=== PATIENT | female | born 1970 | race Caucasian/White ===

== ENCOUNTER 2019-08-23 12:34 | Outpatient (CLI) | payer OTHER, SELFPAY ==
--- NOTE | ~2019-08-23 | MM_ITS ---
EXAMINATION: MM screening [facility] BI w reji HISTORY: Screening mammogram TECHNIQUE: Craniocaudal and mediolateral oblique 3-D tomosynthesis images were obtained and synthetic 2-D images were generated. CAD analysis was submitted and interpreted. COMPARISON: 05/27/2018, 09/05/2016, 01/07/2013 BREAST PARENCHYMAL COMPOSITION: The breasts are almost entirely fatty. FINDINGS: RIGHT BREAST: There is no evidence of suspicious mass, calcification, or architectural distortion to suggest malignancy. There has been no significant interval change. LEFT BREAST: An asymmetry is present in the far posterior third of the slightly outer left breast on the craniocaudal view. IMPRESSION: 1. Left breast asymmetry on the craniocaudal view. 2. Additional mammographic views and possible breast ultrasound are recommended. BI-RADS Category 0: Incomplete: Needs additional imaging evaluation. Reviewed, dictated and finalized at location A. IMPRESSION: 1. Left breast asymmetry on the craniocaudal view. 2. Additional mammographic views and possible breast ultrasound are recommended . BI-RADS Category 0: Incomplete: Needs additional imaging evaluation.
--- NOTE | ~2019-08-23 | US_ITS ---
EXAMINATION: US pelvic complete w TV DATE: 08/23/2019 13:43 INDICATION: Menorrhagia, pelvic pain TECHNIQUE: Multiple transabdominal and endovaginal sonographic images of the pelvis were obtained. COMPARISON: None. FINDINGS: The uterus measures 9.9 x 6.7 cm. There is a 2.8 x 2.9 cm isoechoic area in the left uterin e body with the appearance of an intramural fibroid. The endometrial complex measures 10 mm. The righ t ovary measures 2.5 x 1.7 x 2.3 cm. The left ovary measures 2.7 x 2.4 x 2.6 cm. There is normal vas cular flow in the ovaries. There is no free fluid in the pelvis. IMPRESSION: 1. Uterine fibroid. Reviewed, dictated and finalized at location A. IMPRESSION: 1. Uterine fibroid.
== END 2019-08-23 12:35 ==
PROVIDERS: PCP Family Medicine; Visit Provider Obstetrics & Gynecology
DX: Z12.31 Encounter for screening mammogram for malignant neoplasm of breast (principal); N92.0 Excessive and frequent menstruation with regular cycle; R92.8 Other abnormal and inconclusive findings on diagnostic imaging of breast; D25.9 Leiomyoma of uterus, unspecified
CPT/HCPCS: 76830; 76856; 77063; 77067

== ENCOUNTER 2019-09-07 12:07 | Outpatient (CLI) | payer OTHER, SELFPAY ==
--- NOTE | ~2019-09-07 | MMUS_ITS ---
EXAMINATION: MM diagnostic mammo unilat LT, US breast LT limited HISTORY: Left breast mammographic asymmetry reported in the far posterior third of slightly outer lef t breast on 08/23/2019 screening mammogram TECHNIQUE: Additional 3-D tomosynthesis images of the left breast were performed and synthetic 2-D im ages were generated. CAD analysis was submitted and interpreted. High resolution upper outer quadrant and lower outer quadrant left breast ultrasound was performed. COMPARISON: 09/05/2016, 05/27/2018 bilateral digital screening mammogram examinations FINDINGS: MAMMOGRAPHIC FINDINGS: The asymmetric density in the posterior outer left breast on craniocaudal view is reproduced but appe ars benign. ULTRASOUND: There is no evidence of focal abnormal solid or cystic lesion in the upper outer or lower outer quadr ants of the left breast. IMPRESSION: 1. No mammographic evidence of malignancy 2. 6 month diagnostic left mammogram follow-up is recommended to confirm stability at asymmetric opac ity in posterior outer left breast on craniocaudal view BI-RADS category 3, probably benign findings. Reviewed, dictated and finalized at location A. IMPRESSION: 1. No mammographic evidence of malignancy 2. 6 month diagnostic left mammogram follow-up is recommended to confirm stabil ity at asymmetric opacity in posterior outer left breast on craniocaudal view BI-RADS category 3, probably benign findings.
== END 2019-09-07 12:08 | disposition home or self-care (01) ==
PROVIDERS: PCP Family Medicine; Visit Provider Obstetrics & Gynecology
DX: N63.20 Unspecified lump in the left breast, unspecified quadrant (principal)
CPT/HCPCS: 76642; 77065

== ENCOUNTER → 2020-09-04 08:58 | Outpatient (CLI) | payer OTHER, SELFPAY ==
[2020-09-04 19:04] LABS: SARS-CoV-2 RNA PCR Negative
== END ==
PROVIDERS: PCP Family Medicine; Visit Provider Physician Assistant Medical
DX: R68.89 Other general symptoms and signs (principal); Z20.822 Contact with and (suspected) exposure to COVID-19
CPT/HCPCS: C9803; U0003; U0005

== ENCOUNTER 2020-11-19 19:31 | Emergency (ER) | payer OTHER, SELFPAY ==
--- NOTE | ~2020-11-19 | XR_ITS ---
EXAMINATION: XR chest 1V portable EXAM DATE: 11/19/2020 20:11 INDICATION: Shortness of breath, cough for 4 days. TECHNIQUE: Portable AP frontal chest x-ray was obtained. Comparison is made to prior examination from 09/05/2017. FINDINGS: The lungs are clear. There are no pleural effusions. The cardiomediastinal silhouette is within normal limits. There is no pneumothorax suspected. The bones and soft tissues are unremarkab le. IMPRESSION: Normal chest x-ray exam. Reviewed, dictated and finalized at location G. IMPRESSION: Normal chest x-ray exam.
[2020-11-19 19:35] VITALS: BP 159/110; PULSE 87; RESP 18; TEMP 36.7; O2SAT 100
--- NOTE | 2020-11-19 19:52 | ED.GENADULT ---
HPI - General Adult General Chief complaint: Upper Respiratory Infection Stated complaint: hoarce, throat swelling Time Seen by Provider: 11/19/20 19:34 Source: patient and RN notes reviewed Mode of arrival: ambulatory Limitations: no limitations History of Present Illness HPI narrative: Patient is a 50-year-old female who presents with upper respiratory symptoms for the last couple of days congestion rhinorrhea hoarseness and cough productive of phlegm. Patient denies fever vomiting diarrhea. Patient has been taking Mucinex with minimal improvement. Patient denies tobacco abuse. Patient has not been vaccinated for Covid Related Data Allergies Allergy/AdvReac Type Severity Reaction Status Date / Time No Known Allergies Allergy Mild Verified 10/21/19 13:45 Review of Systems Review of Systems: All systems reviewed & are unremarkable except as noted in HPI and below PMFSH Family History Family History Grandparent Family history of malignant neoplasm of breast Other Diabetes mellitus Family history of alcoholism Family history of arthritis Family history of cardiovascular disease Family history of heart disease in male family member before age 55 Family history of malignant neoplasm Family history of mental disorder Hypertension Social History Social History Smoking status: Never smoker Alcohol intake: never Exam Narrative: Exam Narrative: GENERAL: Well-appearing, well-nourished, and in no acute distress. HEAD: Normocephalic, atraumatic. EYES: PERRLA and EOMI. ENT: Nares clear, no rhinorrhea or epistaxis. Mucous membranes moist. Oropharynx without tonsillar hypertrophy exudate or other lesions. NECK: Supple. No adenopathy or masses. CHEST: Clear to auscultation. No respiratory distress. No wheezes rales or rhonchi HEART: Regular rate and rhythm. No murmur heard. EXTREMITIES: Normal range of motion. No edema. SKIN: Warm, dry, no rash. NEURO: No focal deficits. Alert and oriented x3. PSYCH: Normal mood and affect. Course Course Emergency Course: Patient in the room no distress no pneumonia no hypoxemia discharged home with outpatient reevaluation Vital Signs Vital signs: Vital Signs Temperature 98.1 F 11/19/20 19:35 Pulse Rate 87 11/19/20 19:35 Respiratory Rate 18 11/19/20 19:35 Blood Pressure 159/110 H 11/19/20 19:35 Pulse Oximetry 100 11/19/20 19:35 Temperature 98.1 F 11/19/20 19:35 Pulse Rate 87 11/19/20 19:35 Respiratory Rate 18 11/19/20 19:35 Blood Pressure 159/110 H 11/19/20 19:35 Pulse Oximetry 100 11/19/20 19:35 Medical Decision Making MDM Narrative Medical decision making narrative: Patient will be discharged home pending Covid testing given reasons to return advised to purchase a home oximeter to encourage fluids self quarantine ABCs and vital signs intact and stable similar Vital Signs Vital Signs: Vital Signs Temperature 98.1 F 11/19/20 19:35 Pulse Rate 87 11/19/20 19:35 Respiratory Rate 18 11/19/20 19:35 Blood Pressure 159/110 H 11/19/20 19:35 Pulse Oximetry 100 11/19/20 19:35 Temperature 98.1 F 11/19/20 19:35 Pulse Rate 87 11/19/20 19:35 Respiratory Rate 18 11/19/20 19:35 Blood Pressure 159/110 H 11/19/20 19:35 Pulse Oximetry 100 11/19/20 19:35 Lab Data Labs: Lab Results 11/19/20 Range/Units 20:03 SARS-CoV-2 RNA (RT-PCR) Pending Imaging Data Radiologist's impression: ITS Impressions Chest X-Ray 11/19/20 20:16 IMPRESSION: Normal chest x-ray exam. Discharge Plan Discharge Clinical Impression: Upper respiratory infection Patient Disposition: Home, Self-Care Condition: Stable Instructions: Antibiotic Form, Upper Respiratory Infection (DC) Additional Instructions: Follow up with your primary care provider within 1-2 days to set up for
[2020-11-19 20:34] VITALS: BP 154/90; PULSE 82; RESP 15; O2SAT 99
[2020-11-20 15:56] LABS: SARS-CoV-2 RNA PCR Negative
== END 2020-11-19 20:37 | disposition home or self-care (01) ==
PROVIDERS: Emergency Medicine Emergency Medical Services; Emergency Provider Emergency Medicine; PCP Family Medicine
DX: Z20.822 Contact with and (suspected) exposure to COVID-19 (principal); J06.9 Acute upper respiratory infection, unspecified
CPT/HCPCS: 71045; 99283; C9803; U0003; U0005

== ENCOUNTER → 2021-03-01 02:46 | Outpatient (CLI) | payer OTHER, SELFPAY ==
[2021-03-01 18:09] LABS: SARS-CoV-2 RNA PCR Negative
== END ==
PROVIDERS: PCP Family Medicine; Visit Provider Physician Assistant Medical
DX: R68.89 Other general symptoms and signs (principal); Z20.822 Contact with and (suspected) exposure to COVID-19
CPT/HCPCS: C9803; U0003; U0005

== ENCOUNTER 2021-04-26 13:07 | Outpatient (CLI) | payer OTHER, SELFPAY ==
--- NOTE | ~2021-04-26 | MM_ITS ---
EXAMINATION: MM diagnostic [facility] BI w reji HISTORY: Follow-up breast asymmetry. TECHNIQUE: Additional 3-D tomosynthesis images of the breasts were performed and synthetic 2-D images were generated. CAD analysis was submitted and interpreted. COMPARISON: Comparison to multiple prior studies sequentially, with oldest reviewed study dated 01/07. BREAST PARENCHYMAL COMPOSITION: Breast composed of scattered areas of fibroglandular density FINDINGS: There are no suspicious masses, calcifications or architectural distortion in either breast to suggest malignancy. IMPRESSION: 1. No mammographic evidence for malignancy in either breast. 2. Recommend routine screening mammography in one year. BI-RADS Category 1: Negative Reviewed, dictated and finalized at location A. CAPPER
== END 2021-04-26 13:08 | disposition home or self-care (01) ==
PROVIDERS: PCP Family Medicine; Visit Provider Obstetrics & Gynecology
DX: N63.20 Unspecified lump in the left breast, unspecified quadrant (principal); R92.8 Other abnormal and inconclusive findings on diagnostic imaging of breast
CPT/HCPCS: 77062; 77066; G0279

== ENCOUNTER → 2021-05-22 02:56 | Outpatient (CLI) | payer OTHER, SELFPAY ==
[2021-05-22 20:10] LABS: SARS-CoV-2 RNA PCR Negative
== END ==
PROVIDERS: PCP Family Medicine; Visit Provider Nurse Practitioner Family
DX: R68.89 Other general symptoms and signs (principal); Z20.822 Contact with and (suspected) exposure to COVID-19
CPT/HCPCS: C9803; U0003; U0005

== ENCOUNTER → 2021-05-24 08:54 | Outpatient (CLI) | payer OTHER, SELFPAY ==
--- NOTE | ~2021-05-24 | XR_ITS ---
XR chest 2V DATE: 05/24/2021 09:13 INDICATION: Cough TECHNIQUE: 2 views COMPARISON: 11/19/2020 portable AP chest 09/05/2017 two-view chest FINDINGS: Normal heart size. No hilar or mediastinal enlargement. No pulmonary infiltrate or consolid ation, pleural effusion or pulmonary vascular congestion or pneumothorax. Included skeletal structure s are unremarkable. IMPRESSION: No active cardiopulmonary disease Reviewed, dictated and finalized at location A. IC HEALTH TECHNICIAN
== END ==
PROVIDERS: PCP Family Medicine; Visit Provider Nurse Practitioner Family
DX: R05.9 Cough, unspecified (principal)
CPT/HCPCS: 71046

== ENCOUNTER 2022-08-06 11:52 | Outpatient (CLI) | payer OTHER, SELFPAY ==
--- NOTE | 2022-08-06 12:03 | ECG_ITS ---
Measurements Intervals [place] Rate: 69 P: 10 NM: 154 QRS: 44 QRSD: 82 T: 15 QT: 408 QTc: 440 Interpretive Statements SINUS RHYTHM BASELINE WANDER- I, II, AVR, AVL, AVF, V1 NORMAL ECG NO PREVIOUS ECG AVAILABLE FOR COMPARISON Electronically Signed On 08-06-2022 13:03:15 CDT by Taqueria Phipps D.O.
== END 2022-08-06 11:53 | disposition home or self-care (01) ==
LOC: ANHCARD 11:54
PROVIDERS: PCP Family Medicine; Visit Provider Nurse Practitioner Family
DX: R03.0 Elevated blood-pressure reading, without diagnosis of hypertension (principal); R06.02 Shortness of breath
CPT/HCPCS: 93005

== ENCOUNTER 2022-08-20 13:08 | Outpatient (CLI) | payer OTHER, SELFPAY ==
--- NOTE | 2022-08-26 16:50 | WPDHOLTEREM ---
Holter/Event Monitor Holter/Event Monitor Date of procedure: 08/20/22 Holter/Event Procedure: 48 Hr Holter Monitor Indications: SOB/Elevated BP Conclusion: 1. 48 hour holter monitor on 08/20/22. 2. Underlying rhythm is sinus rhythm. HR range 48-140 bpm; average HR 78 bpm. HR at 48 bpm was at 02:47; HR at 140 bpm was at 19:27. 3. There are 6 premature supraventricular complexes and 11 supraventricular couplets. No supraventricular tachycardia. 4. There are 20 premature ventricular complexes and 1 ventricular couplet. No ventricular tachycardia. 5. No sinoatrial or atrioventricular blocks. No significant pauses greater than 2 seconds. 6. No symptoms available for correlation.
== END 2022-08-20 13:09 | disposition home or self-care (01) ==
PROVIDERS: PCP Family Medicine; Visit Provider Nurse Practitioner Family
DX: R06.02 Shortness of breath (principal); R03.0 Elevated blood-pressure reading, without diagnosis of hypertension
CPT/HCPCS: 93225; 93226

== ENCOUNTER 2023-05-16 10:16 | Outpatient (CLI) | payer OTHER, SELFPAY ==
--- NOTE | ~2023-05-16 | XR_ITS ---
EXAMINATION: XR chest 2V DATE: 05/16/2023 10:31 INDICATION: Productive cough TECHNIQUE: PA and lateral views of the chest are obtained. COMPARISON: 05/24/2021 FINDINGS: The lungs are free of acute opacities. No pleural effusion or pneumothorax. The cardiomedia stinal silhouette is normal. There is mild thoracic spondylosis. IMPRESSION: 1. No acute cardiopulmonary abnormality. Reviewed, dictated and finalized at location B. OSITE SCIENCE TEACHER
== END 2023-05-16 10:17 | disposition home or self-care (01) ==
PROVIDERS: PCP Family Medicine; Visit Provider Physician Assistant
DX: J40 Bronchitis, not specified as acute or chronic (principal)
CPT/HCPCS: 71046

== ENCOUNTER 2023-11-06 13:04 | Outpatient (CLI) | payer OTHER, SELFPAY ==
--- NOTE | ~2023-11-06 | MMUS_ITS ---
EXAMINATION: MM diagnostic [facility] BI w reji, US breast BI complete HISTORY: Palpable breast abnormalities. TECHNIQUE: Additional 3-D tomosynthesis images of the breasts were performed and synthetic 2-D images were generated. CAD analysis was submitted and interpreted. High resolution bilateral complete breas t ultrasound was performed. COMPARISON: Comparison to multiple prior studies sequentially, with oldest reviewed study dated 09/05 2. BREAST PARENCHYMAL COMPOSITION: Not dense: There are scattered areas of fibroglandular density. FINDINGS: MAMMOGRAPHIC FINDINGS: There are no suspicious masses, calcifications or architectural distortion in either breast to sugges t malignancy. ULTRASOUND: Complete bilateral US of all 4 quadrants of the breasts and retroareolar region was reviewed. At 12:0 0 in the right breast, 7 cm from the nipple, there is a superficial 1.1 cm lipoma which is benign. No suspicious masses in either breast to suggest malignancy. IMPRESSION: 1. No evidence for malignancy in either breast. 2. Routine yearly screening mammogram and regular clinical breast examination are recommended. BI-RADS CATEGORY 2 - BENIGN FINDINGS Reviewed, dictated and finalized at location B. IMPRESSION: 1. No evidence for malignancy in either breast. 2. Routine yearly screening mammogram and regular clinical breast examination a re recommended. BI-RADS CATEGORY 2 - BENIGN FINDINGS
== END 2023-11-06 13:05 | disposition home or self-care (01) ==
LOC: ANHIMG 13:06
PROVIDERS: PCP Family Medicine; Visit Provider Obstetrics & Gynecology
DX: N63.10 Unspecified lump in the right breast, unspecified quadrant (principal); N63.20 Unspecified lump in the left breast, unspecified quadrant
CPT/HCPCS: 76641; 77062; 77066; G0279

== ENCOUNTER 2023-12-14 11:52 | Emergency (ER) | payer OTHER, SELFPAY ==
--- NOTE | ~2023-12-14 | CT_ITS ---
CT foot LT wo con DATE: 12/14/2023 12:39 INDICATION: Left ankle and foot pain TECHNIQUE: Axial noncontrast images through the foot with sagittal and coronal reconstructions FINDINGS: There is edema of the posterior plantar soft tissues. There is prominent plantar and posterior calcaneal enthesopathy. There is polyarticular mild osteoarthritis including tibiotalar, talonavicular and some tarsal and ta rsometatarsal joints in addition to the first metatarsophalangeal joint. There is a focal relatively lucent area with thinning/loss of the dorsal cortex at the proximal dorsa l aspect of the cuboid bone with a central small sclerotic focus. Consider osteoid osteoma, erosive a rthropathy, fracture. There is a similar central small sclerotic density with small surrounding lucent zone at the superola teral base of the third metatarsal bone. Radionuclide bone scan and/or MR examination may be helpful for further evaluation. Otherwise no fracture, dislocation, periosteal reaction or bone destruction is noted. IMPRESSION: Small sclerotic opacity with surrounding focal lucency at the dorsal proximal superior as pect of the cuboid bone, similar finding in the superolateral base of third metatarsal bone. Differen t diagnosis includes osteoid osteoma, erosive change, fracture Consider MR imaging and/or radionuclide bone scan. Plantar posterior calcaneal enthesopathy Edema of the foot Reviewed, dictated and finalized at Location A. Reviewed, dictated and finalized at Location A. Reviewed, dictated and finalized at location J. IMPRESSION: Small sclerotic opacity with surrounding focal lucency at the dorsa l proximal superior aspect of the cuboid bone, similar finding in the superolat eral base of third metatarsal bone. Different diagnosis includes osteoid osteom a, erosive change, fracture Consider MR imaging and/or radionuclide bone scan. Plantar posterior calcaneal enthesopathy Edema of the foot
[2023-12-14 11:55] VITALS: BP 144/95; PULSE 80; RESP 18; TEMP 36.7; O2SAT 97
--- NOTE | 2023-12-14 12:07 | ED.GENADULT ---
HPI - General Adult General Chief complaint: Extremity Injury, Lower Stated complaint: left foot pain Time Seen by Provider: 12/14/23 11:55 History of Present Illness HPI narrative: 53-year-old female presents to the emergency department for evaluation for left foot pain. Patient states last night she had acute onset pain in the dorsum of her left foot that is worsened with dorsiflexion and weight bearing. Patient denies any incident of injury or falls. Patient denies any prior surgical history with the foot or ankle. Related Data Home Medications Medication Instructions Recorded Confirmed doxycycline monohydrate 50 mg 50 mg PO DAILY 10/03/23 10/03/23 capsule Allergies Allergy/AdvReac Type Severity Reaction Status Date / Time No Known Allergies Allergy Mild Verified 10/03/23 09:55 Review of Systems Review of Systems: All systems reviewed & are unremarkable except as noted in HPI and below PMFSH Past Medical History Medical History BMI 45.0-49.9, adult Body mass index (BMI) of 40.1 to 44.9 in adult COVID-19 Rosacea Surgical History Surgical History History of orthopedic surgery torn meniscus L knee L arm - ulna nerve transposed Family History Family History Grandparent Family history of malignant neoplasm of breast Breast cancer Father No problems noted. Mother No problems noted. Sibling COVID-19 Other Diabetes mellitus Family history of alcoholism Family history of arthritis Family history of cardiovascular disease Family history of heart disease in male family member before age 55 Family history of malignant neoplasm Family history of mental disorder Hypertension Social History Social History Smoking status: Never smoker Second hand tobacco smoke exposure: No Alcohol intake: never Substance use: never Substance use type: does not use Lack of Transportation: No Lack of Food: Never True Current Housing: I Have Housing Concerned About Future Housing: No Difficulty Paying Gas/Electric Bills: No Difficulty Paying for Meds: No Currently Unemployed: No Education: Bachelor's Degree Difficulty w/ Childcare or Family Care: No Living arrangements: with family Occupation/Education: occupation Additional occupation/education comments: [employer] Gender identity (if verbalized by the patient): Female Sexual Orientation (if Verbalized by the Patient): Straight or Heterosexual Exam Narrative: APPEARANCE: Well appearing, no pain, no distress, well-nourished. HEAD: normocephalic, atraumatic. EYES: PERRLA/EOMI, conjunctivae clear. NOSE: Normal no drainage EARS:TMS clear with good light reflex. THROAT: Pharynx clear, no exudate. NECK: Supple. No adenopathy, no masses. RESPIRATORY: Airway patent, respirations nonlabored. Clear to auscultation bilaterally, no rales, rhonchi, wheezing. CARDIOVASCULAR: Regular rate and rhythm without murmurs rubs or gallops. ABDOMINAL: Soft, nontender, nondistended, normal bowel sounds MUSCULOSKELETAL: Strong plantar and dorsiflexion with no pain. No tenderness to palpation of proximal tib-fib, ankle or dorsum of foot, no ecchymosis, no deform, no edema. Pain induced with weight-bearing NEURO: Alert. Cranial nerves II through XII intact. Course Vital Signs Vital signs: Vital Signs Temperature 98.1 F 12/14/23 11:55 Pulse Rate 80 12/14/23 11:55 Respiratory Rate 18 12/14/23 11:55 Blood Pressure 144/95 H 12/14/23 11:55 Pulse Oximetry 97 12/14/23 11:55 Oxygen Delivery Room Air 12/14/23 11:55 Temperature 98.1 F 12/14/23 11:55 Pulse Rate 95 12/14/23 14:51 Respiratory Rate 19 12/14/23 14:51 Blood Pressure 138/91 H 12/14/23 14:51 Pulse Oximetry 99 12/14/23 14:
[2023-12-14 14:51] VITALS: BP 138/91; PULSE 95; RESP 19; O2SAT 99
--- NOTE | 2023-12-22 21:40 | PC.NURSE ---
late entry note: pt short leg fiberglass splint was applied to the pt Left leg
--- NOTE | 2023-12-30 14:16 | PC.NURSE ---
LATE ENTRY This note is being entered to document information to the patient's record. The following information was omitted on [12/14/23], by [Ana Parrish RN]. short leg posterior applied to Left lower leg
== END 2023-12-14 14:52 | disposition home or self-care (01) ==
PROVIDERS: Emergency Provider Emergency Medicine; PCP Family Medicine
DX: S92.212A Displaced fracture of cuboid bone of left foot, initial encounter for closed fracture (principal); X58.XXXA Exposure to other specified factors, initial encounter
CPT/HCPCS: 29515; 73700; 99284

== ENCOUNTER 2023-12-24 11:22 | Outpatient (CLI) | payer OTHER, SELFPAY ==
--- NOTE | ~2023-12-24 | MR_ITS ---
MRI of the left hindfoot Clinical history: Pain Technique: Coronal proton-density and proton-density fat-sat images, axial proton-density and proton- density fat-sat images, and sagittal proton-density and proton-density fat-sat images were acquired. Findings: Syndesmotic ligaments are intact. Anterior and posterior talofibular ligaments, and calcane ofibular ligament are intact. Deltoid ligament is intact. Medial flexor tendons are intact, with tendinosis of the distal tibialis posterior tendon. Anterior e xtensor tendons, peroneus longus tendon, and Achilles tendon are intact. There is longitudinal split tear focally of the peroneus brevis tendon at the level of the tip of the lateral malleolus. There is no osteochondral lesion of the talar dome. Bone marrow signals and joint spaces are intact. No significant joint effusion. Plantar fascia intact. No soft tissue mass or fluid collection seen. Impression: Longitudinal split tear of the peroneus brevis tendon at the level of the lateral malleolus tip. Reviewed, dictated and finalized at location . Impression: Longitudinal split tear of the peroneus brevis tendon at the level of the later al malleolus tip.
== END 2023-12-24 11:23 ==
LOC: GOSHIMG 11:23
PROVIDERS: PCP Family Medicine; Visit Provider Orthopaedic Surgery
DX: S86.312A Strain of muscle(s) and tendon(s) of peroneal muscle group at lower leg level, left leg, initial encounter (principal); X58.XXXA Exposure to other specified factors, initial encounter
CPT/HCPCS: 73718

== ENCOUNTER 2024-02-11 07:14 | Emergency (ER) | payer OTHER, SELFPAY ==
--- NOTE | ~2024-02-11 | US_ITS ---
RIGHT LOWER EXTREMITY VENOUS ULTRASOUND Ordering provider: Italo Gooden MD History: . R knee/calf pain . Comparison: The FINDINGS: --COMMON FEMORAL: Patent and free of thrombus. Normal compressibility, phasic flow and augmentation. --PROXIMAL SUPERFICIAL FEMORAL: Patent and free of thrombus. Normal compressibility, phasic flow and augmentation. --DISTAL SUPERFICIAL FEMORAL: Patent and free of thrombus. Normal compressibility, phasic flow and au gmentation. --POPLITEAL: Patent and free of thrombus. Normal compressibility, phasic flow and augmentation. --POSTERIOR TIBIAL: Patent and free of thrombus. Normal compressibility, phasic flow and augmentation . IMPRESSION: Negative right lower extremity venous US. No deep vein thrombosis. Reviewed, dictated and finalized at location A.
--- NOTE | ~2024-02-11 | XR_ITS ---
Right Knee Technique: AP, lateral, and oblique views were obtained. Clinical History: Pain Findings: No fracture or dislocation is seen. Osseous alignment is anatomic. Mild medial joint line d egenerative spurring noted. Soft tissues are unremarkable. No joint effusion is seen. Impression: Mild degenerative spurring at the medial joint line. Reviewed, dictated and finalized at [facility]. Impression: Mild degenerative spurring at the medial joint line.
[2024-02-11 07:18] VITALS: BP 152/98; PULSE 72; RESP 18; TEMP 36.2; O2SAT 99
[2024-02-11] MEDS: KETOROLAC 30 MG/ML VIAL (*BKC) IM (07:46)
--- NOTE | 2024-02-11 09:09 | ED.GENADULT ---
HPI - General Adult General Chief complaint: Extremity Problem,Nontraumatic Stated complaint: Right leg pain Time Seen by Provider: 02/11/24 07:23 History of Present Illness HPI narrative: 53-year-old morbidly obese female with a history of chronic joint pain presenting with right knee pain. Pain has been going for 3 weeks. It is worse with movement and standing. No swelling, fevers or trauma. Patient states pain is severe and not allowing her to complete her activities of daily living. Patient has not taken anything for pain control. Patient ambulated into the emergency department. Patient has been seen Dr. Vega for pain in her left leg. Related Data Home Medications Medication Instructions Recorded Confirmed doxycycline monohydrate 100 mg 100 mg PO DAILY 02/11/24 02/11/24 tablet Allergies Allergy/AdvReac Type Severity Reaction Status Date / Time No Known Allergies Allergy Mild Verified 02/11/24 07:40 [facility] Past Medical History Medical History BMI 45.0-49.9, adult Body mass index (BMI) of 40.1 to 44.9 in adult COVID-19 Rosacea Surgical History Surgical History History of orthopedic surgery torn meniscus L knee L arm - ulna nerve transposed Family History Family History Grandparent Family history of malignant neoplasm of breast Breast cancer Father No problems noted. Mother No problems noted. Sibling COVID-19 Other Diabetes mellitus Family history of alcoholism Family history of arthritis Family history of cardiovascular disease Family history of heart disease in male family member before age 55 Family history of malignant neoplasm Family history of mental disorder Hypertension Social History Social History Smoking status: Never smoker Second hand tobacco smoke exposure: No Alcohol intake: never Substance use: never Substance use type: does not use Current Housing: Decline to Answer Concerned About Future Housing: Decline to Answer Difficulty Paying Gas/Electric Bills: Decline to Answer Difficulty Paying for Meds: Decline to Answer Currently Unemployed: Decline to Answer Education: Decline to Answer Difficulty w/ Childcare or Family Care: Decline to Answer Living arrangements: with family Occupation/Education: occupation Additional occupation/education comments: [employer] Gender identity (if verbalized by the patient): Female Sexual Orientation (if Verbalized by the Patient): Straight or Heterosexual Exam Narrative: APPEARANCE: No apparent distress. Head: atraumatic. EYES: EOMI, NOSE: Atraumatic NECK: Trachea midline RESPIRATORY: No increased rate of breathing CARDIOVASCULAR: RRR, ABDOMINAL: Non-distended MUSCULOSKELETAl: Focal is exam of the right knee revealed no obvious effusion although exam is very limited by body habitus. No pain with passive range of motion. Pain active range of motion. Pulses in the foot are intact. And sensation are intact in the foot. Patient is able to ambulate. NEURO: Alert. Moving 4/4 extremities SKIN:: Warm, dry. Normal color PSYCHIATRIC: Normal affect Course Vital Signs Vital signs: Vital Signs Temperature 97.2 F L 02/11/24 07:18 Pulse Rate 72 02/11/24 07:18 Respiratory Rate 18 02/11/24 07:18 Blood Pressure 152/98 H 02/11/24 07:18 Pulse Oximetry 99 02/11/24 07:18 Temperature 97.2 F L 02/11/24 07:18 Pulse Rate 72 02/11/24 07:18 Respiratory Rate 18 02/11/24 07:18 Blood Pressure 152/98 H 02/11/24 07:18 Pulse Oximetry 99 02/11/24 07:18 Medical Decision Making MDM Narrative Medical decision making narrative: -Course: 53-year-old female presenting atraumatic right knee pain. X-rays showed arthritis. DVT scan
== END 2024-02-11 09:32 | disposition home or self-care (01) ==
PROVIDERS: Emergency Provider Emergency Medicine; PCP Family Medicine
DX: M25.561 Pain in right knee (principal); E66.01 Morbid (severe) obesity due to excess calories; Z86.16 Personal history of COVID-19
CPT/HCPCS: 73562; 93971; 96372; 99284; J1885

== ENCOUNTER 2024-02-20 13:14 | Outpatient (CLI) | payer OTHER, SELFPAY ==
--- NOTE | ~2024-02-20 | MR_ITS ---
EXAMINATION: MR knee RT wo con DATE: 02/20/2024 14:20 INDICATION: Nontraumatic posterior medial right knee pain TECHNIQUE: Magnetic resonance imaging (MRI) of the right knee was performed without intravenous contr ast. Sequences included coronal PD-weighted FSE, coronal PD-weighted FS FSE, sagittal T2-weighted FS E, sagittal PD-weighted FS FSE and axial PD weighted fat saturated FSE. COMPARISON: None. FINDINGS: Medial compartment: Medial extrusion of the body of the medial meniscus. Small longitudinal horizontal tear extending to the inferior articular surface at the junction of the body and posterior horn of the meniscus. There is chondral swelling at the posterior most weightbearing medial femoral condyle. Small marginal osteo phytes along the weightbearing medial femoral condyle. Lateral compartment: Lateral meniscus is normal. Small shallow chondral ulceration along the posterior margin of the later al tibial plateau. Patellofemoral compartment: Partial-thickness chondral ulceration and fissuring along the caudal aspect of the medial lateral pat ellar facets and intervening apical ridge and at the caudal two thirds of the trochlear groove all wi thout associated degenerative subchondral changes. Ligaments and tendons: Anterior and posterior cruciate ligaments are normal. The medial collateral ligament and fibular jamia ateral ligament complex are normal. The extensor mechanism is normal. The visualized medial and later al hamstring tendons as well as the iliotibial band are normal. Fluid: Small right knee joint effusion at the suprapatellar pouch. No loose osteochondral bodies identified. Osseous/other: Normal marrow signal. No fracture or pathologic marrow replacing process. There is prominent subcutan eous varicosities at the posterior aspect of the knee. IMPRESSION: 1. Medial meniscal tear. 2. 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 2. Likely reactive small right knee joint effusion. Reviewed, dictated and finalized at location A. IMPRESSION: 1. Medial meniscal tear. 2. Mild osteoarthritis with regions of moderate grade chondromalacia in all 3 c ompartments, greatest at the patellofemoral compartment. 2. Likely reactive small right knee joint effusion.
== END 2024-02-20 13:15 | disposition home or self-care (01) ==
LOC: GOSHIMG 13:15
PROVIDERS: PCP Orthopaedic Surgery; Visit Provider Orthopaedic Surgery
DX: M17.11 Unilateral primary osteoarthritis, right knee (principal); S83.241A Other tear of medial meniscus, current injury, right knee, initial encounter; X58.XXXA Exposure to other specified factors, initial encounter
CPT/HCPCS: 73721

== ENCOUNTER 2024-03-22 01:50 | Day surgery (SDC) | payer OTHER, SELFPAY ==
[2024-03-15 15:07] VITALS: BMI 43.0
--- NOTE | 2024-03-15 15:19 | PC.NURSE ---
Report to the Outpatient Waiting Room, entrance under the green pavilion located off [facility], at time _0700 on date _03/22/24 . Planned Procedure Time: _0900 .? Time changes happen often and if your time is changed the preop area will call you the afternoon before. - You and your visitor will be asked to self-screen and do not enter if you have any COVID symptoms. Please call surgeon if you need to reschedule. - A mask is optional within the hospital at this time. Patients may have clear liquids (water, carbonated beverages, clear teas, apple juice) until 3 hours prior to surgery with a maximum of 20 ounces. - No food from midnight until time of surgery and no smoking Take only the following medications with a SIP of water on the morning of surgery: ___DOXYCYCLINE DO NOT STOP ANY OF YOUR OTHER PRESCRIPTION MEDICATIONS PRIOR TO SURGERY EXCEPT THE FOLLOWING Medications to discontinue per physician MOTRIN__ STOP 03/15/24 Date to take last dose__STOP SUPPLEMENTS ON 03/19/24 Please no make-up, nail spanish, hairspray, perfume, deodorant, or body powder the day of surgery.? No jewelry (including any body piercings) or valuables the day of surgery, leave them at home.? Please take a shower or bath the night before, or the morning of, surgery with an antibacterial soap.? Wear comfortable, loose fitting clothing.? Children are encouraged to wear pajamas. - Jewelry must be removed prior to entering the operating room.? Rings and piercings that are not removed may be cut off. - The hospital will not accept responsibility for valuables.? - Please leave all valuables, including medications, at home the day of surgery. If you are going home after surgery, a licensed lifter driver must drive you home.? - NO public transportation without another adult if you receive anesthesia. - We recommend that an adult stay with you for 24 hours following discharge. - We also recommend that you do not drive, make important decision, drink alcoholic beverages, or take any drugs that were not prescribed by your health care provider for at least 24 hours after your discharge time. Follow any additional instructions given to you from your surgeon. Telephone instructions given to __ANNETTE and asked if any additional questions and then verbalized understanding. Patient advised to call surgeon office or pre surgery nurse liaison [phone] if any additional questions.
--- NOTE | 2024-03-18 10:13 | PM.IMHP ---
H&P: HPI History of Present Illness Date/Time: 03/18/24 10:13 Chief Complaint: Patient presents catching and locking of her right knee. She has try conservative treatment it has been unsuccessful. Had an MRI scan that demonstrates a meniscal tear. She does have some arthritis as well. She would like to proceed with arthroscopic intervention right knee. Review of Systems Musculoskeletal: Musculoskeletal: Reports arthralgias, Reports joint swelling and Reports stiffness PMFSH Past Medical History Medical History BMI 45.0-49.9, adult Body mass index (BMI) of 40.1 to 44.9 in adult COVID-19 Rosacea Surgical History Surgical History History of orthopedic surgery torn meniscus L knee L arm - ulna nerve transposed Family History Family History Grandparent Family history of malignant neoplasm of breast Breast cancer Father No problems noted. Mother No problems noted. Sibling COVID-19 Other Diabetes mellitus Family history of alcoholism Family history of arthritis Family history of cardiovascular disease Family history of heart disease in male family member before age 55 Family history of malignant neoplasm Family history of mental disorder Hypertension Social History Social History (Updated 03/04/24 @ 10:58 by Anne Ponce [facility]) Smoking status: Never smoker Second hand tobacco smoke exposure: No Alcohol intake: never Substance use: never Substance use type: does not use Current Housing: Decline to Answer Concerned About Future Housing: Decline to Answer Difficulty Paying Gas/Electric Bills: Decline to Answer Difficulty Paying for Meds: Decline to Answer Currently Unemployed: Decline to Answer Education: Decline to Answer Difficulty w/ Childcare or Family Care: Decline to Answer Living arrangements: with family Occupation/Education: occupation Additional occupation/education comments: [employer] Gender identity (if verbalized by the patient): Female Sexual Orientation (if Verbalized by the Patient): Straight or Heterosexual Spiritual care concerns: No Meds Home Medications and Allergies Home Medications Medication Instructions Recorded Confirmed Type doxycycline monohydrate 100 mg 100 mg PO DAILY 02/11/24 03/15/24 History tablet ibuprofen 800 mg tablet 800 mg PO TID PRN pain 7 days #21 02/11/24 03/15/24 Rx tabs capsicum (cayenne) 447 mg capsule 447 mg PO DAILY 03/15/24 03/15/24 History Allergies Allergy/AdvReac Type Severity Reaction Status Date / Time No Known Allergies Allergy Mild Verified 03/04/24 10:08 Exam Narrative: On exam she has mechanical catching and locking of her right knee. She has pain to palpation manipulation. Neurologically she is intact. She walks with an antalgic gait. She has positive Tammie's and pain at the joint line. Eyes: General: appearance normal, both eyes and all related structures Neck: Neck: supple Resp: Effort & Inspection: normal respiratory effort Cardio: Rate: regular rate Rhythm: regular rhythm Radiology Reports: Comments: Patient: Sveta Richter EXAMINATION: MR knee RT wo con DATE: 02/20/2024 14:20 INDICATION: Nontraumatic posterior medial right knee pain TECHNIQUE: Magnetic resonance imaging (MRI) of the right knee was performed without intravenous contrast. Sequences included coronal PD-weighted FSE, coronal PD-weighted FS FSE, sagittal T2-weighted FSE, sagittal PD-weighted FS FSE and axial PD weighted fat saturated FSE. COMPARISON: None. FINDINGS: Medial compartment: Medial extrusion of the body of the medial meniscus. Small longitudinal horizontal tear extending to the inferior articular surface at the junction of the body and posterior horn of the meniscus. There is chondral swelling at the posterior most weightbearing medial femoral condyle. Small marginal osteophytes along the weightbearing medial femoral condyle. Lateral compartment: Lateral meniscus is normal. Small shallow chondral ulceration along the posterior margin of the lateral tibial plateau. Patellofemoral compartment: Partial-thickness chondral ulceration and fissuring along the caudal aspect of the medial lateral patellar facets and intervening apical ridge and at the caudal two thirds of the trochlear groove all without associated degenerative subchondral changes. Ligaments and tendons: Anterior and posterior cruciate ligaments are normal. The medial collateral ligament and fibular collateral ligament complex are normal. The extensor mechanism is normal. The visualized medial and lateral hamstring tendons as well as the iliotibial band are normal. Fluid: Small right knee joint effusion at the suprapatellar pouch. No loose osteochondral bodies identified. Osseous/other: Normal marrow signal. No fracture or pathologic marrow replacing process. There is prominent subcutaneous varicosities at the posterior aspect of the knee. IMPRESSION: 1. Medial meniscal tear. 2. 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 2. Likely reactive small right knee joint effusion. Reviewed, dictated and finalized at location A. Dictated By: Darnell Patrick MD 02/20/24 1645 Signed By: <Electronically signed by Darnell Patrick MD in OV> 02/20/24 1653 Foot X-Ray 12/18/23 Foot MRI 12/24/23 Knee X-Ray 02/11/24 Knee MRI 02/20/24 Orthopedics Result Report 12/22/23 Assessment and Plan Assessment and plan (1) Acute medial meniscus tear of right knee: Code(s): S83.241A - Other tear of medial meniscus, current injury, right knee, initial encounter Status: Acute Assessment and Plan: Patient has a meniscal tear right. She has been unresponsive to conservative treatment like to consider arthroscopic intervention. Complicating this is her morbid obesity. Also the fact she has some degenerative changes in her knee. She understands she may not get complete relief. I discussed treatment options with her risks benefits limitations and alternatives in detail. Will proceed per her request.
[2024-03-22] VITALS (12 sets, daily range): BP systolic 100–141; BP diastolic 68–85; PULSE 61–93; RESP 13–16; TEMP 36.3–36.5; O2SAT 92–97; BMI 43.1
[2024-03-22] MEDS: LACTATED RINGERS 1,000 ML 30 ML IV CONT (07:30)
[2024-03-22] MEDS: KETOROLAC 15 MG/ML VIAL (*BKC) IV PUSH (07:50)
[2024-03-22] MEDS: ACETAMINOPHEN 500 MG TABLET 1000 MG PO (07:50)
--- NOTE | 2024-03-22 08:22 | WPDHPUPDATE1 ---
History and Physical Update Update Date/Time: 03/22/24 08:22 History and Physical has been reviewed, including an updated exam of the patient. There are NO changes in the patient's condition. Risks, benefits, and alternatives have been discussed and questions answered. Patient agrees to proceed with procedure.
[2024-03-22 08:30] LABS: BEDSIDEPREGUCG Negative (Negative)
--- NOTE | 2024-03-22 08:33 | WPDANESEPPF ---
Anes - Initial Pre Proc Eval Procedure: Operation Date: 03/22/24 09:00 Proposed Procedures p Right Knee Arthroscopy, Partial Meniscectomy, Proceed as Indicated - Bernard Vega MD Date/Time: 03/22/24 08:33 Surgeon: Bernard Vega MD Pre Op Diagnosis: right medial meniscus tear Patient Data Age: 53 Gender: F Height: 1.8 m Weight: 140.3 kg Last Vital Signs Temp 36.3 C L 03/22/24 07:20 Pulse 93 03/22/24 07:20 Resp 16 03/22/24 07:20 BP 100/70 03/22/24 07:20 Pulse Ox 97 03/22/24 07:20 Allergies Allergy/AdvReac Type Severity Reaction Status Date / Time No Known Allergies Allergy Mild Verified 03/04/24 10:08 Home Medications Medication Instructions Recorded Confirmed Type doxycycline monohydrate 100 mg 100 mg PO DAILY 02/11/24 03/22/24 History tablet ibuprofen 800 mg tablet 800 mg PO TID PRN pain 7 days #21 02/11/24 03/22/24 Rx tabs capsicum (cayenne) 447 mg capsule 447 mg PO DAILY 03/15/24 03/22/24 History Laboratory Tests 03/22/24 07:50 POC Urine HCG, Qual Negative (Negative) Patient hx anesthesia problems: post op nausea/vomiting Family hx anesthesia problems: none Results Review: All pre-operative results and documents have been reviewed as part of the pre-operative evaluation. [facility] Past Medical History Medical History BMI 45.0-49.9, adult Body mass index (BMI) of 40.1 to 44.9 in adult COVID-19 Rosacea Surgical History Surgical History History of orthopedic surgery torn meniscus L knee L arm - ulna nerve transposed Family History Family History Grandparent Family history of malignant neoplasm of breast Breast cancer Father No problems noted. Mother No problems noted. Sibling COVID-19 Other Diabetes mellitus Family history of alcoholism Family history of arthritis Family history of cardiovascular disease Family history of heart disease in male family member before age 55 Family history of malignant neoplasm Family history of mental disorder Hypertension Social History Social History (Updated 03/04/24 @ 10:58 by Anne Ponce CMA) Smoking status: Never smoker Second hand tobacco smoke exposure: No Alcohol intake: never Substance use: never Substance use type: does not use Current Housing: Decline to Answer Concerned About Future Housing: Decline to Answer Difficulty Paying Gas/Electric Bills: Decline to Answer Difficulty Paying for Meds: Decline to Answer Currently Unemployed: Decline to Answer Education: Decline to Answer Difficulty w/ Childcare or Family Care: Decline to Answer Living arrangements: with family Occupation/Education: occupation Additional occupation/education comments: [employer] Gender identity (if verbalized by the patient): Female Sexual Orientation (if Verbalized by the Patient): Straight or Heterosexual Spiritual care concerns: No Anes - Eval Final PreProcedure Day of Procedure 03/22/24 08:33 Patient weight: morbidly obese Heart: regular rate and rhythm Lungs: clear to auscultation Airway: Mallampati scale class II Neurological: alert and oriented Last oral intake: >/= 8 hours ASA classification: III Emergent: no Anesthetic plan: proceed Anesthesia type and monitoring: general LMA and standard monitoring Results Review: All pre-operative results and documents have been reviewed as part of the pre-operative evaluation. Informed Consent: The patient's anesthetic plan and its attendant risks and benefits were discussed with the patient/family/POA. Questions were solicited and answers provided to the satisfaction of the patient/family/POA.
[2024-03-22] MEDS: SCOPOLAMINE 1 MG PATCH 1 PATCH TRANSDERM (08:43)
[2024-03-22] MEDS: ceFAZolin 3 GM/D5W 100 ML 100 ML IVPB (08:46)
[2024-03-22] MEDS: LIDO 1%/EPINEPHRINE 1:100,000 20 ML VIAL INFILTRATE (09:08)
--- NOTE | 2024-03-22 09:25 | W.PM.PROC2 ---
Procedure Note - Detailed Date of Procedure 03/22/24 Pre-op Diagnosis RIGHT medial meniscus tear Post-op Diagnosis Same Procedure Performed RIGHT knee arthroscopy with partial meniscectomy Surgeon Bernard Vega MD Anesthesia General Description of Procedure Patient brought to operating room # 8. An anesthetic was administered. The knee was sterilely prepped and draped in the usual manner. Standard portals were used. Superior medial portal was used for the outflow cannula, inferior lateral portal was used for the scope, inferior medial portal was used for the instruments. Arthroscopy was performed, the patellar femoral joint showed significant degenerative changes. She has specially head where where the plica was rubbing against the femoral condyle with grade 4 changes. The medial compartment showed a complex tear posteriorly. She had grade 3 changes in medial compartment. The lateral compartment showed fraying. The ACL was intact. Using baskets and rakan the meniscal tear was trimmed back to a stable base so the nothing further could be pulled into the joint. Any loose or delaminated fragments were gently trimmed to a stable base. At this point the instruments were withdrawn, sutures placed and patient left the operating room in satisfactory condition. Estimated Blood Loss 20 Drains No Packing No Pathology None sent Complications No immediate complications Condition Stable Disposition PACU [facility] Billing Surgery - Charge Forward: Surgery Billing (Arthroscopy Partial Menis [id number])
[2024-03-22] MEDS: ONDANSETRON INJ 4 MG/2 ML VIAL IV PUSH (10:07)
[2024-03-22] MEDS: diphenhydrAMINE HCl INJ 50 MG/ML VIAL 12.5 MG IV PUSH (11:41)
[2024-03-22] MEDS: oxyCODONE HCL (*CRX) 5 MG TAB IR PO (11:41)
== END 2024-03-22 12:13 | disposition home or self-care (01) ==
PROVIDERS: PCP Family Medicine; Visit Provider Orthopaedic Surgery
PROC: (CPT 29870; principal; 2024-03-22 09:00)
DX: S83.231A Complex tear of medial meniscus, current injury, right knee, initial encounter (principal); M17.11 Unilateral primary osteoarthritis, right knee; M94.261 Chondromalacia, right knee; X58.XXXA Exposure to other specified factors, initial encounter; E66.01 Morbid (severe) obesity due to excess calories; Z68.41 Body mass index [BMI] 40.0-44.9, adult; Z79.1 Long term (current) use of non-steroidal anti-inflammatories (NSAID); Z98.890 Other specified postprocedural states; Z80.3 Family history of malignant neoplasm of breast; Z82.49 Family history of ischemic heart disease and other diseases of the circulatory system
CPT/HCPCS: 29881; A9270; J0690; J1100; J1200; J1885; J2003; J2004; J2250; J2405; J2704; J3010; J7120

== ENCOUNTER 2024-06-21 09:31 | Emergency (ER) | payer OTHER, SELFPAY ==
--- NOTE | ~2024-06-21 | XR_ITS ---
EXAMINATION: XR chest 2V DATE: 06/21/2024 10:21 INDICATION: Chest pain TECHNIQUE: PA and lateral views of the chest were obtained. COMPARISON: Chest radiograph dated 05/16/2023 FINDINGS: The lungs are clear with no focal airspace opacities, pulmonary edema, pleural effusion or pneumothor ax. The cardiomediastinal silhouette is normal. Mild thoracic spondylosis. IMPRESSION: 1. No acute cardiopulmonary disease. Reviewed, dictated and finalized at location B. OTIONAL ADVERTISING ASSISTANT
--- NOTE | 2024-06-21 09:32 | ECG_ITS ---
Test Date: 2024-06-21 09:48:53 Measurements Intervals [place] Rate: 72 P: 9 NE: 152 QRS: 19 QRSD: 75 T: 12 QT: 398 QTc: 438 Interpretive Statements SINUS RHYTHM LOW QRS VOLTAGE IN PRECORDIAL LEADS BORDERLINE R WAVE PROGRESSION, ANTERIOR LEADS CONSIDER INFERIOR INFARCT, AGE INDETERMINATE BASELINE ARTIFACT- I, II, III, AVR, AVL, AVF ABNORMAL ECG No previous ECG available for comparison Electronically Signed On 06-21-2024 10:37:32 RN TRANSPORT by Taqueria Phipps D.O.
[2024-06-21 09:44] VITALS: BP 155/107; PULSE 73; RESP 15; TEMP 36.6; O2SAT 97
[2024-06-21 09:51] VITALS: O2SAT 97
[2024-06-21] MEDS: ASPIRIN 81 MG CHEWABLE TABLET 324 MG PO (09:56)
[2024-06-21 10:01] LABS: Basophils Absolute Auto 0.1 K/mm3 (0.0-0.1); Basophils Percent Auto 0.8 % (0.2-1.2); Eosinophils Percent Auto 0.6 % (0-4.4); Hematocrit 39.3 % (37.0-47.0); Hemoglobin 12.6 g/dL (12.0-15.0); Immature Granulocyte Absolute 0.02 K/mm3 (0.00-0.031); Immature Granulocyte Percent A 0.3 % (0-0.5); Lymphocytes Absolute Auto 2.15 K/mm3 (0.9-3.2); Lymphocytes Percent Auto 33.9 % (18.3-44.2); Mean Corpuscular HGB Conc 32.1 g/dl (32-36); Mean Corpuscular Hemoglobin 25.4 pg (26-34); Mean Corpuscular Volume 79.2 fl (80-100); Mean Platelet Volume 10.9 fl (7.4-10.4); Monocytes Absolute Auto 0.4 K/mm3 (0.1-0.6); Neutrophils Absolute Auto 3.7 K/mm3 (1.3-6.7); Neutrophils Percent Auto 58.4 % (45.5-73.1); Platelet Count Result 210 k/mm3 (150-375); Red Blood Count 4.96 M/mm3 (4.2-5.4); Red Cell Distribution Width 15.4 % (11.5-14.5); White Blood Count 6.4 K/mm3 (4.5-10.0)
--- OUTSIDE RECORDS SUMMARY | 2024-06-21 10:06 | XMS_ITS | Clinical Summary ---
Author Organization [facility] Address [address] [place] [address]. [place], [place] [address] [place] [id number] Care Team Providers Care Sinter Feeder Name Role Phone Unavailable Primary Care Provider Unavailabl e Social History Tobacco Use Types Packs/Day Years Used Date Smoking Tobacco: Never Assessed Comments Unknown Sex and Gender Information Value Date Recorded Sex Assigned at Not on file Legal Sex Female 7:40 PM CDT Gender Identity Not on file Sexual Orientation Not on file Plan of Treatment Health Maintenance Due Date Last Done Comments Cervical Cancer Screening Pa p Smear (Age 30 to 64) Every 3 Years 1971 Colorectal Cancer Screening Colonoscopy (10 Years) 1971 Annual Physical 1974 Hepatitis C 1989 DTaP, Tdap and Td Vaccines ( 1 - Tdap) 1990 Hepatitis B Vaccines (1 of 3 - 19+ 3-dose series) 1990 Cervical Cancer Screening Pa p with HPV Testing (Age 30 to 64) Every 5 Years 2001 Cervical Cancer Screening with HPV 2001 Mammogram Screening 2011 Zoster Vaccines (1 of 2) 2021 COVID-19 Vaccine (2023-2 5 season) 2024 Influenza Adult (#1) 2024 Meningococcal B Vaccine Aged Out No l onger eligible based on patient's age to complete this topic Meningococcal Vaccine Aged Out No kel richard eligible based on patient's age to complete this topic Pneumococcal Vaccine: Pediat rics (0 to 5 Years) and At-Risk Patients (6 to 64 Years) Aged Out No longer eligible b ased on patient's age to complete this topic RSV Immunizations Under 20 Months Aged Out No longer eligible based on patient's age to complete this topic
--- OUTSIDE RECORDS SUMMARY | 2024-06-21 10:06 | XMS_ITS | Continuity of Care Document ---
Author Organization [facility] Address [address] [place] [address] Phone Care Team Providers Care Metal Hanging Helper Name Role Phone Marsha Lowe Unavailable Unavailable Advance Directives Directive Yes / No Effective Date File Name No Information Encounters Encounter Description Practice Location Reason(s) For Visit Diagnoses Date Provider Providers Copied on Encounter [facility], [address], [place], [place], [id number], [place] tel:[phone] [facility] No Information 0-200 3 Chrissy Larson. [address] , [address], [place], [address], [place]. tel:[phone] Family History Family Member Type Diagnosis Age At Onset No Information Payers Payer name Insurance type Covered libertarian ID Authoriza tion(s) No Information Social History Type Description Quantity Date Captured Comments Sex Female Smoking Status No Information Chief Complaint And Reason For Visit No Information Reason For Referral Reason For Referral No Information History Of Present Illness Encounter Date Complaint History Of Prese nt Illness No Information Functional Status Date Functional Assessmen t No Information Instructions Date Instruction Additional Infor mation No Information Assessments Type Assessment Date No Information Patient Care Teams Name Effective Dates (start - stop) Status Members No Information
[2024-06-21 10:11] LABS: Alanine Aminotransferase 18 U/L (6-35); Alkaline Phosphatase 81 U/L (38-126); Anion Gap 9 mmol/L (4-12); Aspartate Amino Transferase 21 U/L (14-36); Bilirubin,Total 1.2 mg/dL (0.2-1.3); Blood Urea Nitrogen 13 mg/dL (7-17); Carbon Dioxide 23 mmol/L (22-30); Chloride 107 mmol/L (98-107); Estimated CRCL calculation 120 ml/min; Estimated Glomerular Filt Rate > 60; Glucose 97 mg/dL (65-110); Lipase 75 U/L (23-300); Potassium 4.1 mmol/L (3.4-5.0); Sodium 139 mmol/L (137-145)
[2024-06-21 10:12] LABS: Prothrombin Time 13.2 Seconds (11.1-14.7)
[2024-06-21 10:13] LABS: Partial Thromboplastin Time 23.5 Seconds (22.3-36.8)
--- NOTE | 2024-06-21 10:16 | ED_ITS ---
HPI - Chest Pain General Chief Complaint: Chest Pain Stated Complaint: chest pain Time Seen by Provider: 06/21/24 10:03 Source: patient Mode of arrival: ambulatory Limitations: no limitations History of Present Illness HPI narrative: This is a 54-year-old with PMH of hidradenitis suppurativa, dyslipidemia who presents to the ED for chief complaint of chest discomfort in our palpitations intermittent for the past few days. Patient states that the symptoms come and go with seemingly at random. She did notice that they started while she was in bed. Denies sharp chest pains or exertional chest pain. Denies shortness of breath, nausea, vomiting, syncope, sweats. No cardiac history. Related Data Home Medications ?Medication ?Instructions ?Recorded ?Confirmed ?Last Taken ?Type doxycycline monohydrate 100 mg 100 mg PO DAILY 02/11/24 04/06/24 5 Days Ago History tablet ~03/17/24 capsicum (cayenne) 447 mg capsule 447 mg PO DAILY 03/15/24 03/22/24 03/18/24 History acetaminophen 650 mg 1,300 mg PO Q8H 04/06/24 04/06/24 Unknown History tablet,extended release (Tylenol Arthritis Pain) Allergies Allergy/AdvReac Type Severity Reaction Status Date / Time No Known Allergies Allergy Mild Verified 04/06/24 07:20 Review of Systems 2 Review of Systems: All systems as dictated in HPI [facility] Past Medical History Medical History BMI 45.0-49.9, adult Body mass index (BMI) of 40.1 to 44.9 in adult COVID-19 Rosacea Surgical History Surgical History History of orthopedic surgery torn meniscus L knee L arm - ulna nerve transposed Family History Family History Grandparent Family history of malignant neoplasm of breast Breast cancer Father No problems noted. Mother No problems noted. Sibling COVID-19 Other Diabetes mellitus Family history of alcoholism Family history of arthritis Family history of cardiovascular disease Family history of heart disease in male family member before age 55 Family history of malignant neoplasm Family history of mental disorder Hypertension Social History Social History (Reviewed 04/06/24 @ 07:20 by Trinidad Beasley [facility] Smoking status: Never smoker Second hand tobacco smoke exposure: No Alcohol intake: never Substance use: never Substance use type: does not use Current Housing: Decline to Answer Concerned About Future Housing: Decline to Answer Difficulty Paying Gas/Electric Bills: Decline to Answer Difficulty Paying for Meds: Decline to Answer Currently Unemployed: Decline to Answer Education: Decline to Answer Difficulty w/ Childcare or Family Care: Decline to Answer Living arrangements: with family Occupation/Education: occupation Additional occupation/education comments: [employer] Gender identity (if verbalized by the patient): Female Sexual Orientation (if Verbalized by the Patient): Straight or Heterosexual Spiritual care concerns: No Exam 2 Narrative: GENERAL: Well-appearing, well-nourished, and in no acute distress. HEAD: Normocephalic, atraumatic. EYES: PERRLA and EOMI. ENT: Nares clear, no rhinorrhea or epistaxis. Mucous membranes moist. Oropharynx without tonsillar hypertrophy exudate or other lesions. NECK: Supple. No adenopathy or masses. CHEST: No respiratory distress. Clear to auscultation. No wheezes rales or rhonchi HEART: Regular rate and rhythm. No murmur heard. Normal peripheral pulses. ABDOMEN: Soft, nontender, nondistended, normal active bowel sounds. MSK: Normal range of motion. No edema. SKIN: Warm, dry, no rash. NEURO: Alert and oriented x4. No focal deficits. PSYCH: Normal mood and affect. Course Vital Signs Vital signs: Vital Signs Temperature 97.9 F 06/21/24 09:44 Pulse Rate 73 06/21/24 09:44 Respiratory Rate 15 06/21/24 09:44 Blood Pressure 155/107 H 06/21/24 09:44 Pulse Oximetry 97 06/21/24 09:44 Oxygen Delivery Room Air 06/21/24 09:44 Temperature 97.9 F 06/21/24 09:44 Pulse Rate 68 06/21/24 13:42 Respiratory Rate 16 06/21/24 13:42 Blood Pressure 148/95 H 06/21/24 13:42 Pulse Oximetry 99 06/21/24 13:42 Oxygen Delivery Room Air 06/21/24 09:51 MDM - Chest Pain MDM Narrative Medical decision making narrative: This is a 54-year-old female who presents to the ED for chief complaint of palpitations and chest discomfort. Vitals are normal. Exam is benign. EKG shows normal sinus rhythm with no acute ischemic findings. Lab work is grossly unremarkable including negative serial troponins. D-dimer is negative. Low Wells score combined with the low D-dimer, very low suspicion for PE as a cause of this chest pain. Chest x-ray shows no acute findings Heart score 3. Presentation most likely consistent with pleurisy. She was given aspirin and morphine here with relief of symptoms. Pt will be discharged in stable condition. Return precautions given and supportive measures discussed. Pt is understanding and agreeable with plan for discharge and follow-up with PCP. Wells' Criteria for Pulmonary Embolism from [email or web address] on 06/21/2024 All calculations should be rechecked by clinician prior to use RESULT SUMMARY: 0.0 points Low risk group: 1.3% chance of PE in an ED population. Another study assigned scores <=4 as ?PE Unlikely? and had a 3% incidence of PE. INPUTS: Clinical signs and symptoms of DVT ?> 0 = No PE is #1 diagnosis OR equally likely ?> 0 = No Heart rate > 100 ?> 0 = No Immobilization at least 3 days OR surgery in the previous 4 weeks ?> 0 = No Previous, objectively diagnosed PE or DVT ?> 0 = No Hemoptysis ?> 0 = No Malignancy w/ treatment within 6 months or palliative ?> 0 = No Lab Data 06/21/24 09:54 06/21/24 09:53 Labs: Lab Results 06/21/24 06/21/24 06/21/24 Range/Units 09:53 09:54 12:37 WBC 6.4 (4.5-10.0) K/mm3 RBC 4.96 (4.2-5.4) M/mm3 Hgb 12.6 (12.0-15.0) g/dL Hct 39.3 (37.0-47.0) % MCV 79.2 L (80-100) fl MCH 25.4 L (26-34) pg MCHC 32.1 (32-36) g/dl RDW 15.4 H (11.5-14.5) % Plt Count 210 (150-375) k/mm3 MPV 10.9 H (7.4-10.4) fl Immature Gran % (Auto) 0.3 (0-0.5) % Neut % (Auto) 58.4 (45.5-73.1) % Lymph % (Auto) 33.9 (18.3-44.2) % [place] % (Auto) 6.0 (2.6-8.5) % Eos % (Auto) 0.6 (0-4.4) % Baso % (Auto) 0.8 (0.2-1.2) % Lymph # (Auto) 2.15 (0.9-3.2) K/mm3 [place] # (Auto) 0.4 (0.1-0.6) K/mm3 Eos # (Auto) 0.0 (0-0.3) K/mm3 Baso # (Auto) 0.1 (0.0-0.1) K/mm3 Abs Immat Gran (auto) 0.02 (0.00-0.031) K/mm3 Absolute Neuts (auto) 3.7 (1.3-6.7) K/mm3 Absolute Nucleated RBC 0.000 (0.0-0.012) K/mm3 Nucleated RBC % 0.0 (0.0-0.2) % PT 13.2 (11.1-14.7) Seconds INR 1.0 APTT 23.5 (22.3-36.8) Seconds D-Dimer 0.28 (<0.48) ug/mL Sodium 139 (137-145) mmol/L Potassium 4.1 (3.4-5.0) mmol/L Chloride 107 (98-107) mmol/L Carbon Dioxide 23 (22-30) mmol/L Anion Gap 9 (4-12) mmol/L BUN 13 (7-17) mg/dL Creatinine 0.73 (0.7-1.0) mg/dL Estim Creat Clear Calc 120 ml/min Estimated GFR > 60 (59 - ) Glucose 97 (65-110) mg/dL Calcium 9.0 (8.4-10.2) mg/dL Total Bilirubin 1.2 (0.2-1.3) mg/dL AST 21 (14-36) U/L ALT 18 (6-35) U/L Alkaline Phosphatase 81 (38-126) U/L Troponin I < 0.012 < 0.012 (0.000-0.034) ng/mL Total Protein 7.0 (6.3-8.2) g/dL Albumin 4.0 (3.5-5.1) g/dL Lipase 75 (23-300) U/L Discharge Plan Discharge Clinical Impression: Atypical chest pain, Pleurisy Patient Disposition: Home, Self-Care Condition: Stable Instructions: Antibiotic Form Additional Instructions: Your exam and imaging today are reassuring overall. This is probably a pleuritic chest pain which should resolve on its own over the next couple of weeks. Please take regular Tylenol and ibuprofen every 6 hours as needed for pain control. Follow-up with your PCP closely on this issue. If you have any new or worsening symptoms please return to the ER for further evaluation. Patient Language: Mongolian Prescriptions: No Action acetaminophen [Tylenol Arthritis Pain] 650 mg tablet extended release 1,300 mg PO Q8H doxycycline monohydrate 100 mg tablet 100 mg PO DAILY capsicum (cayenne) 447 mg Capsule 447 mg PO DAILY Follow-up/Referrals: Yoni Lincoln MD [Primary Care Provider] - Time of Disposition: 13:15 Quality HEART score for chest pain patients History: slightly suspicious ECG: non specific repolarization disturbance/LBTB/PM Age: > 45 and < 65 years Risk factors: 1 or 2 risk factors Troponin: < or = to 1x normal limit Heart score: 3
[2024-06-21 10:23] LABS: Troponin I < 0.012 ng/mL (0.000-0.034)
[2024-06-21 10:41] LABS: D Dimer 0.28 ug/mL (<0.48)
[2024-06-21 11:35] VITALS: BP 149/89; PULSE 69; RESP 16; O2SAT 99
--- OUTSIDE RECORDS SUMMARY | 2024-06-21 11:39 | XMS_ITS | Continuity of Care Document ---
Author Organization [facility] Address [address] [place] [address] Phone Care Team Providers Care Commission Specialist Name Role Phone Marsha Lowe Unavailable Unavailable Advance Directives Directive Yes / No Effective Date File Name No Information Encounters Encounter Description Practice Location Reason(s) For Visit Diagnoses Date Provider Providers Copied on Encounter [facility], [address], [place], [place], [id number], [place] tel:[phone] [facility] No Information 0-200 3 Chrissy Larson. [address] , [address], [place], [address], [place]. tel:[phone] Family History Family Member Type Diagnosis Age At Onset No Information Payers Payer name Insurance type Covered republican ID Authoriza tion(s) No Information Social History [...]
--- OUTSIDE RECORDS SUMMARY | 2024-06-21 11:39 | XMS_ITS | Clinical Summary ---
Author Organization [facility] Address [address] [place] [address]. [place], [place] [address] [place] [id number] Care Team Providers Care Certified Athletic Trainer Name Role Phone Unavailable Primary Care Provider [...]
[2024-06-21 12:15] VITALS: BP 150/71; PULSE 71; RESP 16; O2SAT 99
--- NOTE | 2024-06-21 12:27 | ECG_ITS ---
Test Date: 2024-06-21 12:32:02 Measurements Intervals [place] Rate: 60 P: 13 [place]: 157 QRS: 20 QRSD: 75 T: 10 QT: 437 QTc: 440 Interpretive Statements SINUS RHYTHM LOW QRS VOLTAGE IN PRECORDIAL LEADS CONSIDER INFERIOR INFARCT, AGE INDETERMINATE ABNORMAL ECG Compared to ECG 06/21/2024 09:48:53 NO SIGNIFICANT CHANGE Electronically Signed On 06-21-2024 13:45:31 BRIEFCASE SEWER by Taqueria Phipps D.O.
[2024-06-21 13:10] LABS: Troponin I < 0.012 ng/mL (0.000-0.034)
[2024-06-21 13:42] VITALS: BP 148/95; PULSE 68; RESP 16; O2SAT 99
== END 2024-06-21 13:46 | disposition home or self-care (01) ==
PROVIDERS: Family Medicine; Emergency Provider Physician Assistant; PCP Family Medicine
DX: R07.89 Other chest pain (principal); R09.1 Pleurisy; E78.5 Hyperlipidemia, unspecified; Z86.16 Personal history of COVID-19; R94.31 Abnormal electrocardiogram [ECG] [EKG]
CPT/HCPCS: 36415; 71046; 80053; 83690; 84484; 85025; 85380; 85610; 85730; 93005; 96374; 96375; 99284; A9270

== ENCOUNTER 2024-07-30 08:36 | Outpatient (CLI) | payer OTHER, SELFPAY ==
--- NOTE | 2024-07-30 08:53 | ECHO_ITS ---
Patient Info Name: Sveta Richter Age: 54 years : 1970 Gender: Female Ht: 72 in Wt: 306 lbs BSA: 2.72 m2 HR: 70 bpm BP: 187 / 98 mmHg Heart Rhythm: Sinus Rhythm Technical Quality: Fair Exam Date: 07/30/2024 9:01 AM Exam Location: Echo Lab Patient Status: Outpatient Admit Date: 07/30/2024 Staff Ordering Physician: Li Rubio NP Wire Brush Maker: Joanne Coronado RDCS Attending Provider: Li Rubio NP Referring Physician: Ramiro VERMA; Exam Type: CA echo doppler color flow Study Info Indications - Dyspnea Complete two-dimensional, color flow and Doppler transthoracic echocardiogram is performed. Summary 1. Complete two-dimensional, color flow and Doppler transthoracic echocardiogram is performed. 2. Left ventricular chamber dimension is normal. 3. Left ventricular systolic function is normal, estimated at 60-65%. 4. The left ventricular diastolic function is grade I diastolic dysfunction. 5. E/e' 8 is minimally elevated. 6. Left atrial chamber dimension is moderately enlarged. 7. Right atrial chamber dimension is mildly enlarged. 8. There is trace mitral valve regurgitation. 9. There is trace tricuspid valve regurgitation. 10. No pulmonary hypertension, estimated pulmonary arterial systolic pressure is 32 mmHg. Left Ventricle E/e' 8 is minimally elevated. Left ventricular chamber dimension is normal. Left ventricular systolic function is normal, estimated at 60-65%. The left ventricular diastolic function is grade I diastolic dysfunction. Right Ventricle Right ventricular systolic function is normal and with normal TAPSE 2.4 cm. Right ventricular chamber dimension is normal. Left Atria Left atrial chamber dimension is moderately enlarged. Right Atria Right atrial chamber dimension is mildly enlarged. Aortic Valve The aortic valve is trileaflet. There is no aortic valve stenosis. There is no aortic valve regurgitation. Pulmonic Valve There is no pulmonic regurgitation. Mitral Valve There is no mitral valve stenosis. There is trace mitral valve regurgitation. Tricuspid Valve There is trace tricuspid valve regurgitation. No pulmonary hypertension, estimated pulmonary arterial systolic pressure is 32 mmHg. Pericardium/Pleural There is no pericardial effusion. Inferior Vena Cava Normal inferior vena cava with >50% collapse upon inspiration consistent with normal right atrial pressure, 5 mmHg. Aorta The aortic root size at the sinus of Valsalva is normal. Left Ventricular Outflow Tract Name Value Normal LVOT 2D LVOT Diameter 2.1 cm LVOT Doppler LVOT Peak Gradient 3 mmHg LVOT Mean Gradient 2 mmHg LVOT VTI 24 cm LVOT VTI/AV VTI Ratio 0.8 LVOT Stroke Volume 82 ml LVOT CO 5.6 l/min LVOT CI 2.1 l/min/m2 Pulmonic Valve Name Value Normal RVOT Doppler RVOT Peak Gradient 2 mmHg PV Doppler PV Peak Gradient 3 mmHg Mitral Valve Name Value Normal MV Doppler MV Decel Harding 288 cm/s2 MV PHT 71 ms MV Area (PHT) 3.1 cm2 4.0-5.0 MV Diastolic Function MV E Peak Velocity 71 cm/s MV A Peak Velocity 89 cm/s MV E/A 0.8 MV Decel Time 246 ms MV Annular TDI MV E/e' (Septal) 10.1 <=8.0 MV E/e' (Lateral) 7.7 <=8.0 MV E/e' (Average) 8.9 Tricuspid Valve Name Value Normal TV Regurgitation Doppler TR Peak Velocity 260 cm/s TR Peak Gradient 26 mmHg Estimated PAP/RSVP RA Pressure 5 mmHg <=5 PA Systolic Pressure 32 mmHg <36 RV Systolic Pressure 32 mmHg <36 Aortic Valve Name Value Normal AV Doppler AV Peak Velocity 134 cm/s AV Peak Gradient 7 mmHg AV Mean Gradient 4 mmHg AV VTI 31 cm AV Area (Cont Eq VTI) 2.7 cm2 >=3.0 AV Area (Cont Eq [place]) 2.2 cm2 AV Regurgitation 2D LVOT Area 3.4 cm2 Ventricles Name Value Normal LV Dimensions 2D/MM IVS Diastolic Thickness (2D) 1.1 cm 0.6-1.0 LVID Diastole (2D) 5.3 cm 3.8-5.2 LVIW Diastolic Thickness (2D) 1.1 cm 0.6-0.9 LVID Systole (2D) 3.3 cm 2.2-3.5 LVOT Diameter 2.1 cm LV Mass (2D Cubed) 229.23 g 67.00-162.00 LV Mass Index (2D Cubed) 84 g/m2 43-95 Relative Wall Thickness (2D) 0.43 LV Fractional Shortening/Ejection Fraction 2D/MM LV Fractional Shortening (2D) 38 % 27-45 LV EF (2D Teicholz) 67 % 54-74 LV Diastolic Volume (4C MOD) 163 ml LV EF (4C MOD) 61 % LV Diastolic Volume (2C MOD) 173 ml LV EF (2C MOD) 59 % LV Diastolic Volume (BP MOD) 168 ml 46-106 LV Diastolic Volume Index (BP MOD) 62 ml/m2 29-61 LV Systolic Volume (BP MOD) 71 ml 14-42 LV Systolic Volume Index (BP MOD) 26 ml/m2 8-24 LV EF (BP MOD) 58 % 54-74 LV Diastolic Length (4C) 9.0 cm LV Systolic Length (4C) 6.6 cm LV Stroke Volume (4C MOD) 100 ml Atria Name Value Normal LA Dimensions LA Volume (4C A-L) 100 ml LA Volume (BP A-L) 102 ml RA Dimensions RA Area (4C) 18.5 cm2 <=18.0 Report Signatures
--- NOTE | 2024-07-30 08:53 | EST_ITS ---
Patient Info Name: Sveta Richter Age: 54 years : 1970 Gender: Female Ht: 71 in Wt: 306 lbs BSA: 2.70 m2 HR: 73 bpm BP: 176 / 97 mmHg Exam Date: 07/30/2024 10:14 AM Exam Location: Echo Lab Patient Status: Outpatient Admit Date: 07/30/2024 Staff Ordering Physician: Li Rubio NP Attending Provider: Li Rubio NP Exercise Technologist: Antwan DIETZ GUIDANCE SECRETARY Exercise Physician: Taqueria Phipps DO Exam Type: CA stress test treadmill Study Info Indications R06.09 - Other forms of dyspnea A treadmill exercise stress test was performed. Summary 1. 1. Negative Jarocho exercise stress test for ischemic ST changes by ECG criteria. However, patient achieved only 81% MPHR for age group which reduces sensitivity of the test. 2. 2. Reduced functional capacity, achieving 4.7 METs of workload. 3. 3. Baseline hypertension with hypertensive response to exercise. 4. 4. Appropriate HR response to exercise. 5. 5. Appropriate HR recovery at 1 minute post exercise. 6. 6. No imaging with stress testing. 7. 7. Patient informed of the above results. Protocol: Jarocho Stress ECG Details Stage: REST Duration (min): 3 min : 21 sec Speed (mph): 0.0 Grade (%): 0 HR (bpm): 69 SBP (mmHg): 176 DBP (mmHg): 97 METS: --- Stage: REST Duration (min): 11 min : 11 sec Speed (mph): 0.0 Grade (%): 0 HR (bpm): 71 SBP (mmHg): 176 DBP (mmHg): 97 METS: --- Stage: STAGE 1 Duration (min): 1 min : 0 sec Speed (mph): 1.7 Grade (%): 10 HR (bpm): 108 SBP (mmHg): 176 DBP (mmHg): 97 METS: --- Stage: STAGE 1 Duration (min): 2 min : 0 sec Speed (mph): 1.7 Grade (%): 10 HR (bpm): 131 SBP (mmHg): 176 DBP (mmHg): 97 METS: --- Stage: STAGE 1 Duration (min): 3 min : 0 sec Speed (mph): 1.7 Grade (%): 10 HR (bpm): 131 SBP (mmHg): 208 DBP (mmHg): 81 METS: --- Stage: RECOVERY Duration (min): 0 min : 47 sec Speed (mph): 0.0 Grade (%): 0 HR (bpm): 104 SBP (mmHg): 208 DBP (mmHg): 81 METS: --- Rest HR: 71 bpm Peak HR: 136 bpm Rest Sys BP: 176 mmHg Peak Sys BP: 208 mmHg Max Pred HR: 167 bpm % Max Pred HR: 81 % Target HR: 142 bpm Max RPP: 28,288 bpm*mmHg Gutierres Score: -1 BP Response: Patient exhibited a hypertensive response with stress Termination Reason: Maximal effort/unable to continue Cardiac Symptoms: Shortness of breath Max ST Seg Deviation: -0.80 mm Total Time: 3 min : 0 sec Rest Roach BP: 97 mmHg Peak Roach BP: 81 mmHg Angina Score: None Total METS: 4.7 Resting ECG Sinus rhythm. Stress ECG No ST changes. Arrhythmias None. Report Signatures
--- OUTSIDE RECORDS SUMMARY | 2024-07-30 08:56 | XMS_ITS | Clinical Summary ---
Author Organization [facility] Address [address] [place] [address] Care Team Providers Care Wafer Polishing Lead Worker Name Role Phone Unavailable Primary Care Provider [...] Vaccines (1 of 2) 2021 COVID-19 Vaccine ( - 2023-2 5 season) 2024 Influenza Adult (#1) 2024 [...]
--- OUTSIDE RECORDS SUMMARY | 2024-07-30 08:56 | XMS_ITS | Continuity of Care Document ---
Author Organization [facility] Address [address] [place] [address] Phone Care Team Providers Care Sorting And Folding Supervisor Name Role Phone Marsha Lowe Unavailable Unavailable Advance Directives Directive Yes / No Effective Date File Name No Information Encounters Encounter Description Practice Location Reason(s) For Visit Diagnoses Date Provider Providers Copied on Encounter [facility], [address], [place], [place], [id number], [place] tel:[phone] [facility] No Information 0-200 3 Chrissy Larson. [address] , [address], [place], [address], [place]. tel:[phone] Family History Family Member Type Diagnosis Age At Onset No Information Payers Payer name Insurance type Covered alliance party ID Authoriza tion(s) No Information Social History [...]
== END 2024-07-30 08:37 | disposition home or self-care (01) ==
PROVIDERS: PCP Family Medicine
DX: R06.09 Other forms of dyspnea (principal); R03.0 Elevated blood-pressure reading, without diagnosis of hypertension; R94.31 Abnormal electrocardiogram [ECG] [EKG]
CPT/HCPCS: 93017; 93306

== ENCOUNTER 2024-10-15 12:32 | Outpatient (CLI) | payer OTHER, SELFPAY ==
--- NOTE | ~2024-10-15 | MM_ITS ---
EXAMINATION: MM screening robert BI w reij HISTORY: Screening TECHNIQUE: Craniocaudal and mediolateral oblique 3-D tomosynthesis images were obtained and synthetic 2-D images were generated. CAD analysis was submitted and interpreted. COMPARISON: Comparison to multiple prior studies sequentially, with oldest reviewed study dated 09/05. BREAST PARENCHYMAL COMPOSITION: Not dense: There are scattered areas of fibroglandular density. FINDINGS: There is no evidence of suspicious mass, calcification, or architectural distortion to sugg est malignancy in either breast. There has been no suspicious interval change. IMPRESSION: 1. No mammographic evidence of malignancy. 2. Recommend routine screening mammography in one year. BI-RADS Category 1: Negative. Reviewed, dictated and finalized at location A.
== END 2024-10-15 12:33 | disposition home or self-care (01) ==
PROVIDERS: PCP Obstetrics & Gynecology; Visit Provider Obstetrics & Gynecology
DX: Z12.31 Encounter for screening mammogram for malignant neoplasm of breast (principal)
CPT/HCPCS: 77063; 77067

== ENCOUNTER 2024-11-19 17:31 | Emergency (ER) | payer OTHER, SELFPAY ==
--- OUTSIDE RECORDS SUMMARY | 2024-11-19 17:33 | XMS_ITS | Continuity of Care Document ---
Author Organization [facility] Address [address] [place] [address] Phone Care Team Providers Care Ged Teacher Name Role Phone Marsha Lowe Unavailable Unavailable Advance Directives Directive Yes / No Effective Date File Name No Information Encounters Encounter Description Practice Location Reason(s) For Visit Diagnoses Date Provider Providers Copied on Encounter [facility], [address], [place], [place], [id number], [place] tel:[phone] [facility] No Information 0-200 3 Chrissy Larson. [address] , [address], [place], [address], [place]. tel:[phone] Family History Family Member Type Diagnosis Age At Onset No Information Payers Payer name Insurance type Covered democrat ID Authoriza tion(s) No Information Social History [...]
--- OUTSIDE RECORDS SUMMARY | 2024-11-19 17:33 | XMS_ITS | Clinical Summary ---
Author Organization [facility] Address [facility] [place] [address] Care Team Providers Care Medical Practice Administrator Name Role Phone Unavailable Primary Care Provider [...] Screening with HPV 2001 Mammogram Screening 2011 Pneumococcal Vaccine: 50+ Ye ars (1 of 1 - PCV) 2021 Zoster Vaccines (1 of 2) 2021 COVID-19 Vaccine (2023-2 5 season) 2024 Meningococcal B Vaccine Aged Out No l onger eligible based on patient's age to complete this topic Meningococcal Vaccine Aged Out No kel richard eligible based on patient's age to complete this topic RSV Immunizations Under 20 Months Aged Out No longer eligible based on patient's age to complete this topic
[2024-11-19 17:35] VITALS: BP 151/86; PULSE 78; RESP 16; TEMP 36.7; O2SAT 98
--- NOTE | 2024-11-19 17:46 | ED_ITS ---
HPI - Eye Problem General Chief complaint: Eye Problems Stated complaint: R eye problems Time Seen by Provider: 11/19/24 17:38 Source: patient Mode of arrival: ambulatory Limitations: no limitations History of Present Illness HPI Narrative: This is a 54-year-old female that presents to the emergency department for right eye discomfort. Reports initially she thought she was struggling with allergies. Yesterday the eye started to become red, she woke up this morning with abnormal drainage. Denies vision changes. She does not wear contacts. She wears readers. Related Data Home Medications ?Medication ?Instructions ?Recorded ?Confirmed ?Last Taken ?Type ibuprofen 200 mg tablet 200 mg PO Q6H PRN 10/07/24 11/08/24 Unknown History Allergies Allergy/AdvReac Type Severity Reaction Status Date / Time No Known Allergies Allergy Mild Verified 11/08/24 10:21 Review of Systems Review of Systems: All systems reviewed & are unremarkable except as noted in HPI and below PMFSH Past Medical History Medical History BMI 45.0-49.9, adult Rosacea COVID-19 Body mass index (BMI) of 40.1 to 44.9 in adult Surgical History Surgical History History of orthopedic surgery torn meniscus L knee L arm - ulna nerve transposed Right knee Family History Family History Grandparent Family history of malignant neoplasm of breast Breast cancer Father No problems noted. Mother No problems noted. Sibling COVID-19 Other Diabetes mellitus Family history of alcoholism Family history of arthritis Family history of cardiovascular disease Family history of heart disease in male family member before age 55 Family history of malignant neoplasm Family history of mental disorder Hypertension Social History Social History Smoking status: Never smoker Second hand tobacco smoke exposure: No Alcohol intake: never Substance use: never Substance use type: does not use Current Housing: Decline to Answer Concerned About Future Housing: Decline to Answer Difficulty Paying Gas/Electric Bills: Decline to Answer Difficulty Paying for Meds: Decline to Answer Currently Unemployed: Decline to Answer Education: Decline to Answer Difficulty w/ Childcare or Family Care: Decline to Answer Living arrangements: with family Occupation/Education: occupation Additional occupation/education comments: [employer] Gender identity (if verbalized by the patient): Female Sexual Orientation (if Verbalized by the Patient): Straight or Heterosexual Spiritual care concerns: No Exam Narrative: GENERAL: Well-appearing, well-nourished, and in no acute distress. HEAD: Normocephalic, atraumatic. EYES: PERRLA and EOMI. Right conjunctival injection with purulent drainage CHEST: No respiratory distress. HEART: Regular rate EXTREMITIES: Normal range of motion. No edema. SKIN: Warm, dry, no rash. NEURO: No focal deficits. Alert and oriented x3. PSYCH: Normal mood and affect Course Vital Signs Vital signs: Vital Signs Temperature 98.1 F 11/19/24 17:35 Pulse Rate 78 11/19/24 17:35 Respiratory Rate 16 11/19/24 17:35 Blood Pressure 151/86 H 11/19/24 17:35 Pulse Oximetry 98 11/19/24 17:35 Oxygen Delivery Room Air 11/19/24 17:35 Temperature 98.1 F 11/19/24 17:35 Pulse Rate 78 11/19/24 17:35 Respiratory Rate 16 11/19/24 17:35 Blood Pressure 151/86 H 11/19/24 17:35 Pulse Oximetry 98 11/19/24 17:35 Oxygen Delivery Room Air 11/19/24 17:35 MDM - Eye Problem MDM Narrative Medical decision making narrative: Patient presents the emergency department for right eye redness, discomfort, drainage. Exam is consistent with bacterial conjunctivitis. Will be started on topical antibiotic ointment. Instructed to have further follow-up with her eye doctor. She was given warnings to return to the ER Differential Diagnosis Differential diagnosis: Likely conjunctivitis Critical Care Time Critical Care Time Critical Care Time: No Discharge Plan Discharge Clinical Impression: Conjunctivitis Qualifiers: Conjunctivitis type: acute Acute conjunctivitis type: bacterial Laterality: right Qualified Code(s): H10.31 - Unspecified acute conjunctivitis, right eye Patient Disposition: Home Condition: Stable Instructions: Antibiotic Form, Conjunctivitis (ED) Additional Instructions: Return to the emergency department if you experience fever, vision changes, redness and swelling around your eye, or any other symptoms that are concerning to you Apply antibiotic ointment as prescribed Follow-up with your eye doctor Patient Language: Syriac Prescriptions: New erythromycin 5 mg/gram (0.5 %) ointment 0.5 inch RIGHT EYE QID 7 Days Qty: 3.5 0RF No Action ibuprofen 200 mg tablet 200 mg PO Q6H PRN progesterone micronized 100 mg capsule 100 mg PO QHS Qty: 90 3RF meclizine 25 mg tablet 25 mg PO TID PRN (Reason: dizziness) Qty: 30 0RF fluticasone propionate [Allergy Relief (fluticasone)] 50 mcg/actuation spray,suspension 1 spray intranasal DAILY PRN (Reason: allergy symptoms) Qty: 16 0RF Rx Instructions: administer into each nostril Follow-up/Referrals: Yoni Lincoln MD [Primary Care Provider] -
--- OUTSIDE RECORDS SUMMARY | 2024-11-19 18:15 | XMS_ITS | Continuity of Care Document ---
Author Organization [facility] Address [address] [place] [address] Phone Care Team Providers Care Muck Operator Name Role Phone Marsha Lowe Unavailable Unavailable Advance Directives Directive Yes / No Effective Date File Name No Information Encounters Encounter Description Practice Location Reason(s) For Visit Diagnoses Date Provider Providers Copied on Encounter [facility], [address], [place], [place], [id number], [place] tel:[phone] [facility] No Information 0-[address] Chrissy Larson. [address] , [address], [place], [address], [place]. tel:[phone] Family History Family Member Type Diagnosis Age [...]
--- OUTSIDE RECORDS SUMMARY | 2024-11-19 18:15 | XMS_ITS | Clinical Summary ---
Author Organization [facility] Address [facility]ly [facility] [place] [address] Care Team Providers Care Pbx Technician Name Role Phone Unavailable Primary Care Provider [...] this topic Meningococcal Vaccine Aged Out No kle richard eligible based on patient's age to complete this topic RSV Immunizations Under 20 Months Aged Out No longer eligible based on patient's age to complete this topic
== END 2024-11-19 18:21 | disposition home or self-care (01) ==
LOC: ANHED 18:13
PROVIDERS: Emergency Provider Physician Assistant; PCP Family Medicine
DX: H10.31 Unspecified acute conjunctivitis, right eye (principal)
CPT/HCPCS: 99283